=== PATIENT | female | born 1965 | race Two or more races ===

== ENCOUNTER 2025-01-08 22:24 | Emergency (ER) | payer MEDICAID, SELFPAY ==
[2025-01-08 22:35] VITALS: BP 112/75; PULSE 87; RESP 18; TEMP 36.9; O2SAT 99
--- NOTE | 2025-01-08 22:48 | EKG_ITS ---
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
--- NOTE | 2025-01-08 22:50 | PD.EDADULT ---
ED General RME/HPI General Chief complaint: Abdominal Pain Stated complaint: UPPER ABD PAIN Time Seen by Provider: 01/08/25 22:27 Arrival date/time: 01/08/25 22:24 RME / HPI RME / HPI narrative: Patient is 59 years old female with past medical history of hypertension presents to the ED due to epigastric pain. She reports pain started today and is deep and dull. She reports heartburn for which she takes Tums. She also reports sometimes blood in her stool due to chronic hemorrhoids, denies any melena or black stools. She denies any diarrhea, nausea, vomiting, chest pain, shortness of breat, fever, chills. She denies taking any pain medications. She reports her diet was regular recently. Related Data Previous Rx's ?Medication ?Instructions ?Recorded diclofenac sodium 1 % topical gel 4 g topical QID #100 grams 12/25/23 (Voltaren Arthritis Pain) hydrocodone 5 mg-acetaminophen 325 1 tab PO Q8H PRN pain #10 tabs 12/25/23 mg tablet famotidine 40 mg tablet 40 mg PO QDAY #30 tabs 01/09/25 pantoprazole 40 mg tablet,delayed 40 mg PO QDAY #30 tabs 01/09/25 release Allergies Allergy/AdvReac Type Severity Reaction Status Date / Time No Known Allergies Allergy Verified 01/08/25 22:26 Review of Systems Review of Systems Systems Reviewed: All systems reviewed, normal except as documented ED Exam Narrative Physical exam: Gen: Well-developed and well-nourished female. HEENT: NCAT, PERRLA, EOMI, MMM, anicteric conjunctivae. CVS: normal S1 and S2. RRR. No M/R/G. Resp: CTA B/L. No rhonchi, rales, crackles or wheezing. Abd: soft, mildly tender in epigastrium, non-distended. BS+ in all 4 quadrants. MSK: Good ROM in BUE & BLE. No edema or rash. Neuro: CN II-XII grossly intact. Strength 5/5 in BUE & BLE. Alert and oriented x3. Psych: appropriate mood and affect. Course Quality Measures none Orders Category Date Time Status EKG (ED ONLY) *Do not use* NOW Care 01/08/25 22:49 Completed EKG (ED Only) Stat Exams 01/08/25 22:48 Draft US gall bladder Stat Exams 01/09/25 00:02 Stop Req Amylase Stat Lab 01/08/25 23:25 Completed CBC Stat Lab 01/08/25 23:25 Completed CMP [Comprehensive Metabolic Panel] Stat Lab 01/08/25 23:25 Completed Lipase Stat Lab 01/08/25 23:25 Completed Magnesium Stat Lab 01/08/25 23:25 Completed Troponin I Stat Lab 01/08/25 23:25 Completed Famotidine [Pepcid] Med 01/08/25 23:20 Discontinued 40 mg PO X1 ONE Ondansetron Odt [Zofran Odt] Med 01/08/25 23:20 Discontinued 4 mg PO X1 ONE Pantoprazole [Protonix] Med 01/08/25 22:51 Discontinued 40 mg PO X1 ONE Vital Signs Vital signs: Vital Signs Temperature 98.5 F 01/08/25 22:35 Pulse Rate 87 01/08/25 22:35 Respiratory Rate 18 01/08/25 22:35 Blood Pressure 112/75 01/08/25 22:35 Pulse Oximetry (%) 99 01/08/25 22:35 Oxygen Delivery Method Room Air 01/08/25 22:35 Procedures -ED EKG Interpretation Sinus rhythm: Date of EK01/08/25 Time of EK:59 Rate: 68 Interpretation: Reviewed by me EKG Impression: Normal sinus rhythm MDM Patient data External records reviewed:: [facility] previous records Clinical information provided by:: patient Social determinants that could affect healthcare access:: none Patient has the following chronic illnesses:: HTN How is presenting disease/condition affected by chronic disease/condition?: uneffected by Evaluation data The following diagnostics were reviewed and interpreted by me:: lab results and EKG tracing(s) Lab and/or radiology exams considered but not ordered:: CTAP Interpretation Summary: normocytic anemia, mild hyperglycemia Medications Medications considered but not ordered:: aspirin Medication administrations:: Medication Administration History Discontinued Medications Famotidine (Famotidine 20 Mg Tablet) 40 mg PO X1 ONE Stop: 01/08/25 23:21 Last Admin: 01/08/25 23:40 Dose: 40 mg Documented By: CVL Ondansetron HCl (Ondansetron Odt 4 Mg Tabrap) 4 mg PO X1 ONE; Protocol Stop: 01/08/25 23:21 Last Admin: 01/08/25 23:40 Dose: 4 mg Documented By: CVL Pantoprazole Sodium (Pantoprazole 40 Mg Tablet) 40 mg PO X1 ONE Stop: 01/08/25 22:52 Last Admin: 01/08/25 22:59 Dose: 40 mg Documented By: Pantoprazole 40 mg PO. Ondansetron 4 mg PO. Famotidine 40 mg PO. Consultations Consultation(s) initiated? (list below): No Diagnosis Differential Diagnosis ED Complaint MDM: PUD, GERD, ACS Most likely diagnosis given after review of the tests above:: GERD Admission Indicated Admission indicated?: not indicated Explain why admission is indicated or not indicated:: Patient's symptoms are likely due to GERD, for which she already takes Tums. She can be discharged with PO famotidine and pantoprazole. Admission Request Was there a request for admission?: No Disposition Plan Disposition Plan: Discharge Discharge Attestation Discharge Attestation: The patient and all family members were given an opportunity to ask questions and understood the discharge instructions. Discharge instructions specifically effects, indications for sooner follow up or return to the emergency department, and the expected course of current diagnosis. Patient condition: Stable Medical Decision Making Differential Diagnosis Differential Diagnosis: PUD, GERD, ACS Lab Data 01/08/25 23:25 01/08/25 23:25 Labs: Lab Results 01/08/25 Range/Units 23:25 WBC 9.7 (3.6-11.0) Thou/mm3 RBC 3.78 L (4.00-5.20) Miln/mm3 Hgb 11.6 L (12.0-16.0) g/dL Hct 32.9 L (36.0-46.0) % MCV 87 (80-100) fL MCH 30.7 (25.0-35.0) pg MCHC 35.3 (31.0-37.0) g/dl RDW Std Deviation 38.3 (36.4-46.3) fL Plt Count 379 (140-440) Thou/mm3 Neut % (Auto) 53 (37-80) % Lymph % (Auto) 38 (10-50) % Norman % (Auto) 8 (0-12) % Eos % (Auto) 1 (0-10) % Baso % (Auto) 1 (0-2.5) % Neut # (Auto) 5.1 (1.8-7.7) Thou/mm3 Lymph # (Auto) 3.7 (1.0-4.8) Thou/mm3 Norman # (Auto) 0.7 (0.0-0.8) Thou/mm3 Eos # (Auto) 0.1 (0.0-0.5) Thou/mm3 Baso # (Auto) 0.1 (0.0-0.2) Thou/mm3 Immature Gran # (Auto) 0.03 H (0.00-0.00) Thou/mm3 Absolute Nucleated RBC 0.00 (0.00-0.00) Thou/mm3 Immature Gran % 0 (0-0) % Nucleated RBC % 0 (0) /100 WBC Sodium 141 (136-145) mMol/L Potassium 3.6 (3.4-5.1) mMol/L Chloride 104 (98-107) mMol/L Carbon Dioxide 27.4 (20.0-31.0) mMol/L Anion Gap 10 (7-16) BUN 24 H (9-23) mg/dL Creatinine 1.0 (0.6-1.3) mg/dL Estim Creat Clear Calc Not Performed. eGFR > 60 (60 - ) See Note BUN/Creatinine Ratio 24 H (12-20) Ratio Glucose 108 H (74-106) mg/dL Calculated Osmolality 286 (275-295) Calcium 10.4 (8.3-10.6) mg/dL Corrected Calcium 10.4 H (8.5-10.1) mg/dL Magnesium 1.8 (1.6-2.6) mg/dL Total Bilirubin 0.5 (0.3-1.2) mg/dL AST 21 (0-34) U/L ALT 12 (10-49) U/L Alkaline Phosphatase 69 (46-116) U/L Troponin I < 0.020 (0.0-0.045) ng/mL Total Protein 8.3 H (5.7-8.2) gm/dL Albumin 4.7 (3.5-5.0) gm/dL Globulin 3.6 H (2.3-3.5) gm/dL Albumin/Globulin Ratio 1.3 (1.2-2.2) Amylase 54 (30-118) U/L Lipase 56 H (12-53) U/L Discharge Plan Plan Patient Disposition: HOME (Self Care) Patient condition on transfer: Stable Prescriptions/Referrals Prescriptions/Med Rec: New pantoprazole 40 mg tablet,delayed release (DR/EC) 40 mg PO QDAY Qty: 30 0RF famotidine 40 mg tablet 40 mg PO QDAY Qty: 30 0RF No Action hydrocodone-acetaminophen 5-325 mg tablet 1 tab PO Q8H MDD 10 PRN (Reason: pain) Qty: 10 0RF diclofenac sodium [Voltaren Arthritis Pain] 1 % gel 4 g topical QID Qty: 100 0RF Rx Instructions: apply to single knee, ankle, foot; for foot includes sole/toes/top of foot Referrals: No Primary/Family,Physician [Primary Care Provider] - In 1 week Problem List Clinical Impression: Acid reflux Patient/Caregiver Discharge Instructions Additional Instructions: Discharge instructions from Dr. Hollingsworth: ?After evaluation, your symptoms are due to GERD or acid reflux (see attached handout).? ?To help heal the ulcer, take Pantoprazole 40 mg every morning and Famotidine 40 mg at bedtime for a week then as needed. ?Avoid food and beverages that can trigger and worsen ulcers.? See attached handout. To make sure there is no serious intra-abdominal condition, ask for help with more investigation not available here in the ER. Such as EGD or scoping the stomach, colonoscopy or scoping the colon, and referral to see general lithographic worker. ?Seek immediate medical care with worsening or with any concerns. Instrucciones de carolyn del Dr. Hollingsworth: ?Despu?s de la evaluaci?n, stuart s?ntomas se deben a ERGE o reflujo ?cido (ibrahima folleto adjunto). ?Para ayudar a curar la ?lcera, tome Pantoprazol 40 mg todas las ma?anas y Famotidina 40 mg antes de acostarse frankie maddie semana y luego seg?n sea necesario. ?Evite alimentos y bebidas que puedan desencadenar y empeorar las ?lceras. Ibrahima folleto adjunto. Para asegurarse de que no haya maddie afecci?n intraabdominal grave, solicite ayuda con m?s investigaciones que no est?n disponibles aqu? en la carmel de emergencias. Jozef EGD o endoscopia del est?harish, colonoscopia o endoscopia del colon y derivaci?n a un gastroenter?logo. ?Busque atenci?n m?dica inmediata si empeora o tiene alguna inquietud. Print Language: Luxembourgish Stand Alone Forms: Bettie Award Info., Patient Portal Info Letter
[2025-01-08] MEDS: PANTOPRAZOLE 40 MG TABLET PO (22:59)
[2025-01-08] MEDS: ONDANSETRON ODT 4 MG TABRAP PO (23:40)
[2025-01-08] MEDS: FAMOTIDINE 20 MG TABLET 40 MG PO (23:40)
[2025-01-08 23:45] LABS: Basophils # (Auto) 0.1 Thou/mm3 (0.0-0.2); Basophils % (Auto) 1 % (0-2.5); Eosinophils # (Auto) 0.1 Thou/mm3 (0.0-0.5); Eosinophils % (Auto) 1 % (0-10); Hematocrit 32.9 % (36.0-46.0); Hemoglobin 11.6 g/dL (12.0-16.0); Immature Granulocytes % (Auto) 0 % (0-0); Immature Granulocytes Auto 0.03 Thou/mm3 (0.00-0.00); Lymphocytes # (Auto) 3.7 Thou/mm3 (1.0-4.8); Lymphocytes % (Auto) 38 % (10-50); Mean Corpuscular HGB Conc 35.3 g/dl (31.0-37.0); Mean Corpuscular Hemoglobin 30.7 pg (25.0-35.0); Mean Corpuscular Volume 87 fL (80-100); Monocytes # (Auto) 0.7 Thou/mm3 (0.0-0.8); Monocytes % (Auto) 8 % (0-12); Neutrophils # (Auto) 5.1 Thou/mm3 (1.8-7.7); Neutrophils % (Auto) 53 % (37-80); Nucleated Red Blood Cell % 0 /100 WBC (0); Platelet Count 379 Thou/mm3 (140-440); RDW Standard Deviation 38.3 fL (36.4-46.3); Red Blood Count 3.78 Miln/mm3 (4.00-5.20); White Blood Count 9.7 Thou/mm3 (3.6-11.0)
[2025-01-09 00:06] LABS: Alanine Aminotransferase 12 U/L (10-49); Albumin, Serum 4.7 gm/dL (3.5-5.0); Albumin/Globulin Ratio 1.3 (1.2-2.2); Alkaline Phosphatase 69 U/L (46-116); Anion Gap 10 (7-16); Aspartate Amino Transferase 21 U/L (0-34); BUN/Creatinine Ratio 24 Ratio (12-20); Bilirubin,Total 0.5 mg/dL (0.3-1.2); Blood Urea Nitrogen 24 mg/dL (9-23); Calcium 10.4 mg/dL (8.3-10.6); Calcium (Corrected) 10.4 mg/dL (8.5-10.1); Carbon Dioxide 27.4 mMol/L (20.0-31.0); Chloride 104 mMol/L (98-107); Globulin 3.6 gm/dL (2.3-3.5); Glucose 108 mg/dL (74-106); Lipase 56 U/L (12-53); Magnesium 1.8 mg/dL (1.6-2.6); Osmolality,Calculated 286 (275-295); Potassium 3.6 mMol/L (3.4-5.1); Sodium 141 mMol/L (136-145); Total Protein 8.3 gm/dL (5.7-8.2); Troponin I < 0.020 ng/mL (0.0-0.045); eGFR > 60 See Note
[2025-01-09 00:18] LABS: Amylase 54 U/L (30-118)
[2025-01-09 00:45] VITALS: RESP 18
== END 2025-01-09 00:46 | disposition home or self-care (01) ==
PROVIDERS: Emergency Provider Student in an Organized Health Care Education/Training Program
DX: K21.9 Gastro-esophageal reflux disease without esophagitis (principal); I10 Essential (primary) hypertension
CPT/HCPCS: 36415; 80053; 82150; 83690; 83735; 84484; 85025; 93005; 99283; Q0162; A9270

== ENCOUNTER 2025-04-10 15:13 | Emergency (ER) | payer MEDICAID, SELFPAY ==
[2025-04-10 15:44] VITALS: BP 117/76; PULSE 76; RESP 18; TEMP 36.8; O2SAT 100
--- NOTE | 2025-04-10 16:05 | EDNOTE_ITS ---
ED Abdominal Pain RME/HPI General Chief Complaint: Abdominal Pain Stated complaint: UPPER ABD PAIN Arrival date/time: 04/10/25 15:13 59-year-old female with no known medical history presents to the emergency room with a chief complaint of upper abdominal pain. Patient states she has an H. pylori infection and is currently taking multiple antibiotics. Patient states she is having heartburn and pain to the epigastric area. Source: patient Mode of arrival: ambulatory Limitations: no limitations Related Data Previous Rx's ?Medication ?Instructions ?Recorded diclofenac sodium 1 % topical gel 4 g topical QID #100 grams 12/25/23 (Voltaren Arthritis Pain) hydrocodone 5 mg-acetaminophen 325 1 tab PO Q8H PRN pa in #10 tabs 12/25/23 mg tablet famotidine 40 mg tablet 40 mg PO QDAY #30 tabs 01/09 pantoprazole 40 mg tablet,delayed 40 mg PO QDAY #30 ta bs 01/09/25 release hydrocodone 5 mg-acetaminophen 325 1 tab PO BID PRN pa in #10 tabs 04/10/25 mg tablet omeprazole 40 mg capsule,delayed 40 mg PO QDAY #30 cap s 04/10/25 release Allergies Allergy/AdvReac Type Severity Reaction Status Date / Time No Known Allergies Allergy Verified 04/10/25 15:18 Review of Systems Review of Systems Systems Reviewed: All systems reviewed, normal except as documented Constitutional Constitutional: Reports system reviewed and no additional complaints, except as documented, Denies fatigue, Denies fever(s), Denies headache(s) and Denies weakness Eyes Eyes: Reports system reviewed and no additional complaints, except as documented, Denies blurry vision and Denies change in vision ENT Ears, Nose, Mouth, and Throat: Reports system reviewed and no additional complaints, except as documented, Denies otalgia, Denies headache(s), Denies nasal congestion, Denies throat swelling and Denies vertigo Cardiovascular Cardiovascular: Reports system reviewed and no additional complaints, except as documented, Denies chest pain, Denies dyspnea and Denies dyspnea on exertion Respiratory Respiratory: Reports system reviewed and no additional complaints, except as documented, Denies chest congestion, Denies cough, Denies dyspnea, Denies dyspnea on exertion and Denies wheezing Gastrointestinal Gastrointestinal: Reports system reviewed and no additional complaints, except as documented, Reports abdominal pain, Denies cramping, Reports dyspepsia, Reports early satiety, Reports excessive flatus, Reports nausea and Denies vomiting Genitourinary Genitourinary: Reports system reviewed and no additional complaints, except as documented Musculoskeletal Musculoskeletal: Reports system reviewed and no additional complaints, except as documented and Denies back pain Integumentary/Breasts Skin/Breast: Reports system reviewed and no additional complaints, except as documented and Denies wounds Neurologic Neurologic: Reports system reviewed and no additional complaints, except as documented, Denies confusion, Denies headache(s), Denies lack of coordination, Denies vertigo and Denies weakness Psychiatric Psychiatric: Reports system reviewed and no additional complaints, except as documented, Denies anxiety, Denies confusion, Denies depression, Denies paranoia, Denies suicidal ideation and Denies tactile hallucinations Endocrine Endocrine: Reports system reviewed and no additional complaints, except as documented and Denies fatigue Hematologic/Lymphatic Hematologic/Lymphatic: Reports system reviewed and no additional complaints, except as documented and Denies lymphadenopathy Allergic/Immunologic Allergic/Immunologic: Reports system reviewed and no additional complaints, except as documented, Denies throat swelling, Denies urticaria and Denies wheezing Past Medical History Past Medical History NEUROLOGIC: Negative Neurological Disorders or Seizures CARDIAC: Positive Cardiac Disorders and Hypertension; Negative Congestive Heart Failure RESPIRATORY: Negative Chronic Obstructive Pulmonary Disease (COPD) GASTROINTESTINAL: Negative Gastrointestinal Disorders GENITOURINARY: Negative Genitourinary Disorders or Renal Disease REPRODUCTIVE: Positive Previous Pregnancies MUSCULOSKELETAL: Negative Musculoskeletal Disorders ENDOCRINE: Negative Endocrine Disorders, Diabetes Mellitus Type 1 or Diabetes Mellitus Type 2 HEMATOLOGIC: Negative Blood Disorders OTHER HISTORY: Positive Anesthesia Reactions (trouble waking during general anesthesia); Negative Autoimmune Disease or Blood Transfusions Family History FAMILY HISTORY: Negative Family Cardiac Disorders Surgical History SURGICAL: Positive Section (x2) Social History SMOKING STATUS: Never smoker ED Exam General Limitations: Present no limitations General appearance: Present alert and in no apparent distress Head Head exam: Present atraumatic Eye Eye exam: Present normal appearance, PERRL and EOMI ENT ENT exam: Present normal exam, normal oropharynx and mucous membranes moist Neck Neck exam: Present normal inspection, full ROM and trachea midline Chest Chest inspection: Present normal inspection and symmetric chest wall rise Respiratory Respiratory exam: Present normal lung sounds bilaterally Cardiovascular Cardiovascular exam: Present regular rate, normal rhythm and normal heart sounds Abdominal Exam Abdominal exam: Present soft, tenderness and normal bowel sounds; Absent distention, guarding or rebound Abdominal tenderness: Present epigastrium and moderate; Absent RUQ, RLQ, LUQ or LLQ Extremities Exam Extremities exam: Present normal inspection and full ROM Back Exam Back exam: Present normal inspection and full ROM Neurological Exam Neurological exam: Present alert, oriented X3 and CN II-XII intact Psychiatric Psychiatric exam: Present normal affect and normal mood Skin Skin exam: Present warm, dry, intact and normal color Course Quality Measures none Orders Category Date Time Status HYDROcodone*/APAP 5/325 [[place] 5/325] Med 04/10/25 16:00 Discontinued 1 tab PO X1 ONE Pantoprazole [Protonix] Med 04/10/25 16:00 Discontinued 40 mg PO X1 ONE mg Hyd/Al Hyd/Claritza Susp [Maalox Susp] Med 04/10/25 16:00 Discontinued 30 ml PO X1 ONE Vital Signs Vital signs: Vital Signs Temperature 98.3 F 04/10/25 15:44 Pulse Rate 76 04/10/25 15:44 Respiratory Rate 18 04/10/25 15:44 Blood Pressure 117/76 04/10/25 15:44 Pulse Oximetry (%) 100 04/10/25 15:44 Oxygen Delivery Method Room Air 04/10/25 15:44 O2 saturation 100% within normal limits Abdominal Pain MDM MDM Narrative MDM Narrative:: 59-year-old female with no known medical history presents to the emergency room with a chief complaint of upper abdominal pain. Patient states she has an H. pylori infection and is currently taking multiple antibiotics. Patient states she is having heartburn and pain to the epigastric area. Patient is hemodynamically stable and in no apparent distress. Patient is afebrile not tachycardic not tachypneic Physical examination shows tenderness to the epigastric area. The patient denies any right lower quadrant right upper quadrant abdominal tenderness. Patient currently has H. pylori and is taking antibiotics. Patient states that after taking all her antibiotics she feels a lot bloating and burps a lot. Patient was educated to follow-up with her primary care provider and return to the emergency room for any evidence of worsening signs or symptoms Patient data External records reviewed:: [facility] previous records Clinical information provided by:: patient Social determinants that could affect healthcare access:: none Patient has the following chronic illnesses:: No chronic illness How is presenting disease/condition affected by chronic disease/condition?: no chronic disease Evaluation data The following diagnostics were reviewed and interpreted by me:: lab results and radiology exam(s) Lab and/or radiology exams considered but not ordered:: Labs and radiology exams considered in order Interpretation Summary: N/A Medications / Prescriptions Medications or Prescriptions considered but not ordered:: Medication given Medication administrations:: Medication Administration History Discontinued Medications Hydrocodone Bitart/Acetaminophen (Hydrocodone/[place]ap 5/325 Tablet) 1 tab PO X1 ONE Stop: 04/10/25 16:01 Last Admin: 04/10/25 16:16 Dose: 1 tab Documented By: VERN Al Hydrox/Mg Hydrox/Simethicone (Mg Hyd/Al Hyd/Claritza (Maalox Reg) Susp 30 Ml Udc) 30 ml PO X1 ONE Stop: 04/10/25 16:01 Last Admin: 04/10/25 16:16 Dose: 30 ml Documented By: VERN Pantoprazole Sodium (Pantoprazole 40 Mg Tablet) 40 mg PO X1 ONE Stop: 04/10/25 16:01 Last Admin: 04/10/25 16:17 Dose: 40 mg Documented By: VERN Medication given Consultations Consultation(s) initiated? (list below): No Diagnosis Differential diagnosis abdominal pain: abdominal pain, gastroenteritis and other (H. pylori) Most likely diagnosis given after review of the tests above:: H. pylori Admission Indicated Admission indicated?: not indicated Admission Request Was there a request for admission?: No Disposition Plan Disposition Plan: Discharge Discharge Attestation Discharge Attestation: The patient and all family members were given an opportunity to ask questions and understood the discharge instructions. Discharge instructions specifically effects, indications for sooner follow up or return to the emergency department, and the expected course of current diagnosis. Patient condition: Stable Discharge Plan Plan Patient Disposition: HOME (Self Care) Discharge Disposition comment: Stable Prescriptions/Referrals Prescriptions/Med Rec: New omeprazole 40 mg capsule,delayed release(DR/EC) 40 mg PO QDAY Qty: 30 0RF hydrocodone-acetaminophen 5-325 mg tablet 1 tab PO BID MDD 10mg PRN (Reason: pain) Qty: 10 0RF No Action hydrocodone-acetaminophen 5-325 mg tablet 1 tab PO Q8H MDD 10 PRN (Reason: pain) Qty: 10 0RF diclofenac sodium [Voltaren Arthritis Pain] 1 % gel 4 g topical QID Qty: 100 0RF Rx Instructions: apply to single knee, ankle, foot; for foot includes sole/toes/top of foot pantoprazole 40 mg tablet,delayed release (DR/EC) 40 mg PO QDAY Qty: 30 0RF famotidine 40 mg tablet 40 mg PO QDAY Qty: 30 0RF Problem List Clinical Impression: H. pylori infection Patient/Caregiver Discharge Instructions Education Materials: ED H Pylori Infection with ... Additional Instructions: Por favor, consulte con zamora m?dico de cabecera en las pr?ximas 24 a 48 horas. Se le envi? un medicamento a zamora farmacia para ayudarle con la acidez estomacal y el dolor. Esta infecci?n por H. pylori tardar? un par de d?as en mejorar. Por favor, contin?e tomando stuart antibi?ticos. Ante cualquier signo de empeoramiento de los signos o s?ntomas, acuda a urgencias de inmediato. Print Language: Pashto Stand Alone Forms: Bettie Award Info., Patient Portal Info Letter PA/DISASTER RECOVERY ANALYST Supervising Physician PA/DISASTER RECOVERY ANALYST Supervising Physician: Dr. Pritchett
[2025-04-10] MEDS: MG HYD/AL HYD/SIME (Maalox Reg) SUSP 30 ML UDC PO (16:16)
[2025-04-10] MEDS: HYDROcodone/APAP 5/325 TABLET 1 TAB PO (16:16)
[2025-04-10] MEDS: PANTOPRAZOLE 40 MG TABLET PO (16:17)
[2025-04-10 17:06] VITALS: BP 128/70; PULSE 72; RESP 16; TEMP 36.8; O2SAT 100
== END 2025-04-10 17:06 | disposition home or self-care (01) ==
LOC: SERX 16:16
PROVIDERS: Emergency Provider Emergency Medicine; PCP Family Medicine
DX: R10.13 Epigastric pain (principal); B96.81 Helicobacter pylori [H. pylori] as the cause of diseases classified elsewhere
CPT/HCPCS: 99283; A9270

== ENCOUNTER 2025-05-12 07:50 | Day surgery (SDC) | payer MEDICAID, SELFPAY ==
--- NOTE | 2025-05-06 06:22 | EKG_ITS ---
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
[2025-05-06 07:45] VITALS: BMI 24.5
[2025-05-06 08:37] LABS: Basophils # (Auto) 0.1 Thou/mm3 (0.0-0.2); Basophils % (Auto) 1 % (0-2.5); Eosinophils # (Auto) 0.1 Thou/mm3 (0.0-0.5); Eosinophils % (Auto) 1 % (0-10); Hematocrit 40.5 % (36.0-46.0); Hemoglobin 14.6 g/dL (12.0-16.0); Immature Granulocytes Auto 0.01 Thou/mm3 (0.00-0.00); Lymphocytes # (Auto) 3.8 Thou/mm3 (1.0-4.8); Lymphocytes % (Auto) 52 % (10-50); Mean Corpuscular HGB Conc 36.0 g/dl (31.0-37.0); Mean Corpuscular Hemoglobin 30.9 pg (25.0-35.0); Mean Corpuscular Volume 86 fL (80-100); Monocytes # (Auto) 0.5 Thou/mm3 (0.0-0.8); Monocytes % (Auto) 7 % (0-12); Neutrophils # (Auto) 2.8 Thou/mm3 (1.8-7.7); Neutrophils % (Auto) 38 % (37-80); Nucleated Red Blood Cell # 0.00 Thou/mm3 (0.00-0.00); Nucleated Red Blood Cell % 0 /100 WBC (0); Platelet Count 297 Thou/mm3 (140-440); RDW Standard Deviation 38.7 fL (36.4-46.3); Red Blood Count 4.73 Miln/mm3 (4.00-5.20); White Blood Count 7.3 Thou/mm3 (3.6-11.0)
[2025-05-06 09:01] LABS: Alanine Aminotransferase 15 U/L (10-49); Albumin, Serum 4.5 gm/dL (3.5-5.0); Albumin/Globulin Ratio 1.4 (1.2-2.2); Alkaline Phosphatase 56 U/L (46-116); Anion Gap 9 (7-16); Aspartate Amino Transferase 26 U/L (0-34); BUN/Creatinine Ratio 14 Ratio (12-20); Bilirubin,Total 0.5 mg/dL (0.3-1.2); Blood Urea Nitrogen 13 mg/dL (9-23); Calcium 9.9 mg/dL (8.3-10.6); Calcium (Corrected) 9.9 mg/dL (8.5-10.1); Carbon Dioxide 27.0 mMol/L (20.0-31.0); Chloride 106 mMol/L (98-107); Creatinine (Component) 0.9 mg/dL (0.6-1.3); Estimated Creatinine Clearance 57.2 mL/min (>60); Globulin 3.3 gm/dL (2.3-3.5); Glucose 90 mg/dL (74-106); Osmolality,Calculated 283 (275-295); Potassium 2.8 mMol/L (3.4-5.1); Sodium 142 mMol/L (136-145); Total Protein 7.8 gm/dL (5.7-8.2); eGFR > 60 See Note
--- NOTE | 2025-05-07 11:19 | SUR.PREOP ---
K 2.8, pt notified to eat a couple of bananas daily until Sunday, pt also notified to come in at 0900 on Sunday.
--- NOTE | 2025-05-11 15:12 | SUR.PREOP ---
Pt notified to come in tomorrow at 0800.
[2025-05-12] VITALS (10 sets, daily range): BP systolic 113–131; BP diastolic 62–73; PULSE 51–70; RESP 12–25; TEMP 36.6; O2SAT 98–100; BMI 25.4
[2025-05-12 09:13] LABS: Potassium 3.0 mMol/L (3.4-5.1)
[2025-05-12] MEDS: POTASSIUM CHL 10 mEq IVPB 100 ML 100 MEQ IV (10:35)
--- NOTE | 2025-05-12 10:35 | PD.SUROPNT ---
Date of Procedure 05/12/25 Pre Op Diagnosis Symptomatic cholelithiasis Post Op Diagnosis Cholelithiasis with cholecystitis Procedure Laparoscopic cholecystectomy Findings Moderately distended gallbladder with gallstones and chronic cholecystitis. Anterior surface of the liver was smooth without nodules or lesions Procedure Description Patient was brought into the operating room in supine position. After administration of general endotracheal anesthesia abdomen was prepped and draped in standard surgical manner. A Veress needle was inserted through the umbilicus and pneumoperitoneum was obtained up to 15 mmHg. The Veress needle was then removed, a 5 mm infraumbilical incision was made and the 5mm trocar was inserted. Laparoscopic camera was placed. Under direct visualization a laparoscopic camera a 10 mm trocar was placed in subxiphoid and two 5 mm trocars placed in right upper quadrant. Anterior surface of the liver was smooth without nodules or any lesions. The gallbladder was identified and was noted to be moderately distended. It was retracted cephalad and laterally. Dissection started near the infundibulum of gallbladder where cystic duct and gallbladder junction clearly identified. The cystic duct was circumferentially dissected off the peritoneum and surrounding inflammatory tissue. The critical view of safety was clearly demonstrated. Cystic duct was then divided between 2 endoclips proximally and one distally. The cystic artery was similarly dissected and divided. The gallbladder was then from the liver bed using electrocautery. The gallbladder was then placed inside an Endo Catch and removed from the abdomen utilizing subxiphoid trocar site. The area was copiously and thoroughly washed and irrigated, all the fluid was suctioned and the suction fluid returned clear. Hemostasis achieved using electrocautery. Endoclips noted be in place and intact without any bleeding or any leakage. Hemostasis was adequate and satisfactory. The subxiphoid trocar sites fascial defect was closed with 0 Vicryl using Endo Closure device. Instruments and trocars removed, pneumoperitoneum was evacuated and the incisions closed with 4-0 Monocryl in subcuticular fashion. Instrument needle and sponge counts were all reported to be correct X2. Patient tolerated the procedure well, was extubated, breathing spontaneously and without difficulty and was transferred to postanesthesia care in stable condition. Anesthesia GETA and local Pathology / specimen Other (Gallbladder and contents) Estimated Blood Loss 10 Condition Stable Disposition PACU Surgeon Ryan Camacho MD Surgical Staff Operation Date: 05/12/25 10:00 Case Staff Anesthesiologist: Geovanni Yun respiratory tech: Shanique Cano
--- NOTE | 2025-05-12 10:48 | SUR.PHASEI ---
1031: Pt received in [place] via [facility]. Report from Rosaline SORIANO and Dr. Yun. Pt obtunded. Responds with brief eye opening. Resp even, unlabored. VS stable. Surgical sites x4 to abdomen secured with dermabond are dry, clean, intact. No swelling, discoloration to areas. No c/o of pain.
--- NOTE | 2025-05-12 10:51 | SUR.PHASEI ---
1050: Pt resting with no complaints voiced. Resp even, unlabored. VS stable. Surgical sites remain dry, intact with no swelling, discoloration. Potassium infusion started at arrival continues to infuse with no problems.
[2025-05-12] MEDS: ONDANSETRON INJ 2 MG/ML INJ 2 ML 4 MG IVP (11:44)
--- NOTE | 2025-05-12 14:13 | SUR.PHASEII ---
1115: Potassium infusion continues to infuse. Pt has been resting with no complaints. VS stable. Surgical sites remain dry, clean, intact with no swelling, discoloration.Tolerating po fluids with no difficulty swallowing and no n/v. 1135: Potassium infusion complete. 1144: Pt has c/o nausea. No emesis. Zofran given per order. 1155: Pt stated nausea has subsided. VS stable. States she has very little pain with movement. 1213: Pt fully awake, oriented x3. Pt dressed. Assisted to transport chair. Ambulation steady. Pt requested daughter interpret for her. Both stated understanding of discharge instructions. 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 Pt discharged from [facility] in stable condition.
== END 2025-05-12 12:13 | disposition home or self-care (01) ==
PROVIDERS: Anesthesiology; PCP Physician Assistant; Referring Provider Surgery; Visit Provider Surgery
PROC: 0FT44ZZ Resection of Gallbladder, Percutaneous Endoscopic Approach (ICD-10-PCS; CPT 47562; principal; 2025-05-12 09:45)
DX: K80.10 Calculus of gallbladder with chronic cholecystitis without obstruction (principal); Z01.810 Encounter for preprocedural cardiovascular examination
CPT/HCPCS: 47562; 36415; 80053; 84132; 85025; 93005; A4217; A4649; J0131; J0694; J1100; J2405; J2704; J3010; J3480; J3490